=== PATIENT | female | born 1995 | race Caucasian/White ===

== ENCOUNTER 2025-07-11 00:58 | Emergency (ER) | payer MEDICAID, OTHER ==
[~2025-07-11] VITALS: Ht 157.5 cm; Wt 57.2 kg
[2025-07-11 01:02] VITALS: BP 116/77
[2025-07-11 02:01] VITALS: BP 119/78; O2SAT 96
[2025-07-11] MEDS ORDERED: ALBU8.5H8 INH ×2 (02:02→17:07)
== END 2025-07-11 02:06 | disposition home or self-care (01) ==
LOC: ER 01:10
DX: R06.00 Dyspnea, unspecified (principal); R05.9 Cough, unspecified; R06.02 Shortness of breath
CPT/HCPCS: 71046; A4606; A4663